=== PATIENT | female | born 1965 | race Caucasian/White ===

== ENCOUNTER 2022-04-30 16:23 | Emergency (ER) | payer BC, SELFPAY ==
--- NOTE | ~2022-04-30 | XR_ITS ---
EXAMINATION: XR chest 2V Exam Date/Time: 04/30/2022 16:45 CDT HISTORY: cough x 3 days Comparison: None available. RESULT: Lines, tubes, and devices: Cervical and thoracolumbar fusion hardware. Lungs and pleura: Mild diffuse reticular opacities, with peribronchial cuffing. Cardiomediastinal silhouette: Stable. Other: No acute osseous or upper abdominal finding. IMPRESSION: Subtle pulmonary opacities may reflect very mild interstitial edema versus bronchiolitis. Reviewed, dictated and finalized at location [facility]. IMPRESSION: Subtle pulmonary opacities may reflect very mild interstitial edema versus bron chiolitis.
[2022-04-30 16:34] VITALS: BP 164/89; PULSE 95; RESP 16; TEMP 37.9; O2SAT 99
--- NOTE | 2022-04-30 16:58 | ED.URI ---
HPI - URI/Sore Throat General Chief Complaint: Upper Respiratory Infection Stated Complaint: cough History of Present Illness HPI Narrative: This a 56-year-old female comes in complaining of cough congestion pressure in the chest patient states this been going on for approximately 6 weeks. Patient denies taking much for her symptoms she has taken some cough medicine and a few doses of some allergy medicine. Patient is a design teacher. Patient states she can hear herself wheezing at times denies being a smoker. Patient denies any nausea vomiting and/or diarrhea states that she has not had a fever Related Data Allergies Allergy/AdvReac Type Severity Reaction Status Date / Time No Known Allergies Allergy Verified 04/30/22 17:21 Review of Systems Review of Systems: Wheezing, some shortness of breath and coughing All systems reviewed & are unremarkable except as noted in HPI and below Exam Narrative: GENERAL:Well-appearing, well-nourished, and in no acute distress. HEAD:Normocephalic, EYES: PERRLA and EOMI. ENT: Nares clear, no rhinorrhea or epistaxis. Mucous membranes moist. CHEST: Clear to intermittent wheezing diminished in the lower right lobe auscultation. No respiratory distress. HEART: Regular rate and rhythm.Normal peripheral pulses. ABDOMEN: Soft, nontender, nondistended, normal active bowel sounds. EXTREMITIES: Normal range of motion. No edema. SKIN: Warm, dry, no rash. NEURO: No focal deficits. Alert and oriented x3. Course Course Emergency Course: Chest x-ray opacity of the lungs possible pulmonary edema with bronchiolitis Level of Care: Express Care Visit Vital Signs Vital signs: Vital Signs Temperature 100.3 F H 04/30/22 16:34 Pulse Rate 95 04/30/22 16:34 Respiratory Rate 16 04/30/22 16:34 Blood Pressure 164/89 H 04/30/22 16:34 Pulse Oximetry 99 04/30/22 16:34 Temperature 100.3 F H 04/30/22 16:34 Pulse Rate 95 04/30/22 16:34 Respiratory Rate 16 04/30/22 16:34 Blood Pressure 164/89 H 04/30/22 16:34 Pulse Oximetry 99 04/30/22 16:34 MDM - URI/Sore Throat Differential Diagnosis Differential diagnosis: Likely upper respiratory infection, croup, otitis media, sinusitis, viral infection, bronchitis, influenza and other (Pneumonia) Discharge Plan Discharge Clinical Impression: Bronchitis, Pneumonia Patient Disposition: Home, Self-Care Condition: Stable Instructions: Antibiotic Form, Bronchiolitis (ED), Bacterial Pneumonia (DC) Additional Instructions: Make sure you drink plenty of fluids Avoid being around smoke Take all of your medication as directed Followup with your PCP as needed Get a Nebulizer from the [facility] I have ordered you the medication Prescriptions: New methylprednisolone [Methylpred DP] 4 mg tablets,dose pack See Rx Instructions .ROUTE .COMPLEX Qty: 21 0RF Rx Instructions: orally per package directions albuterol sulfate [Ventolin HFA] 90 mcg/actuation HFA aerosol inhaler 1 inh inhalation QID PRN (Reason: shortness of breath or wheezing) Qty: 8.5 0RF azithromycin [Zithromax Z-Stevo] 250 mg tablet See Rx Instructions .ROUTE .COMPLEX Qty: 6 0RF Rx Instructions: For 250 mg dose pack: take 500 mg today (day 1), then 250 mg for 4 days (days 2-5) albuterol sulfate 2.5 mg /3 mL (0.083 %) solution for nebulization 2.5 mg inhalation Q6H PRN (Reason: bronchospasm) Qty: 90 0RF Follow-up/Referrals: UNKNOWN,DOCTOR [Primary Care Provider] - Time of Disposition: 17:28
== END 2022-04-30 17:35 | disposition home or self-care (01) ==
PROVIDERS: Emergency Provider Nurse Practitioner Family
DX: J40 Bronchitis, not specified as acute or chronic (principal); J18.9 Pneumonia, unspecified organism
CPT/HCPCS: 71046; 99213; G0463